=== PATIENT | female | born 1975 | race Caucasian/White ===

== ENCOUNTER 2016-08-07 14:20 | Emergency (ER) | payer MEDICAID ==
[~2016-08-07] VITALS: Ht 144.8 cm; Wt 63.5 kg
[2016-08-07 14:26] VITALS: BP 126/86
[2016-08-07] MEDS ORDERED: diphenhydrAMINE 50 MG/ML VIAL IM ONE (14:30)
[2016-08-07] MEDS ORDERED: MORPHINE SULFATE 4 MG/ML SYR IM ONE (14:30)
--- NOTE | 2016-08-07 14:30 | NUR ---
Patient ambulated to bed 07.
--- NOTE | 2016-08-07 14:31 | NUR ---
40/F BIB C/O ABSCESS UNDER LEFT ARM X3 DAYS. PT DENIES N/V/D; AAOX4 WITH EVEN AND STEADY GAIT; LUNGS CLEAR BL; HR EVEN AND REGULAR; PT DENIES ANY FEVER, CP, SOB, OR COUGH AT THIS TIME; PATIENT STATES PAIN OF 10/10 AT THIS TIME; VSS; PATIENT POSITIONED FOR COMFORT; HOB ELEVATED; BEDRAILS UP X2; BED DOWN. ER MD MADE AWARE OF PT STATUS.
[2016-08-07] MEDS ORDERED: LIDOCAINE/EPI 1% 1:100000 20 ML VIAL INJ ONE ×2 (14:34→15:05)
[2016-08-07] MEDS ORDERED: MORPHINE SULFATE 4 MG/ML SYR ONE (14:35)
--- NOTE | 2016-08-07 14:35 | NUR ---
DR WARNER EVALUATING PT AT BEDSIDE
[2016-08-07] MEDS ORDERED: diphenhydrAMINE 50 MG/ML VIAL ONE (14:37)
[2016-08-07 15:20] VITALS: BP 126/69
--- NOTE | 2016-08-07 15:20 | NUR ---
Patient discharged with v/s stable. Written and verbal after care instructions given and explained. Patient alert, oriented and verbalized understanding of instructions. Ambulatory with steady gait. All questions addressed prior to discharge. ID band removed. Patient advised to follow up with PMD. Rx of KEFLEX& NORCO given. Patient educated on indication of medication including possible reaction and side effects. Opportunity to ask questions provided and answered.
== END 2016-08-07 15:20 | disposition home or self-care (01) ==
LOC: MED 14:20
DX: L02.412 Cutaneous abscess of left axilla (principal)
CPT/HCPCS: 10060; 87070; 96372; 99284; J1200; J2001; J2270

== ENCOUNTER 2016-08-09 08:38 | Emergency (ER) | payer MEDICAID ==
[~2016-08-09] VITALS: Ht 144.8 cm; Wt 63.5 kg
[2016-08-09] MEDS ORDERED: NACL 0.9% 1,000 ML IV SCH (08:46)
[2016-08-09 08:49] VITALS: BP 118/70
[2016-08-09] MEDS ORDERED: ONDANSETRON 4 MG/2 ML VIAL IVP ONE (08:50)
--- NOTE | 2016-08-09 09:02 | NUR ---
Dr. Walker evaluating patient at bedside.
--- NOTE | 2016-08-09 09:02 | NUR ---
40/F BIB FOR RECHECK S/P I&D TO RIGHT AXILLA ABSCESS W/PACKING. PT DENIES N/V/D. AAOX4 WITH EVEN AND STEADY GAIT; LUNGS CLEAR BL; HR EVEN AND REGULAR; PT DENIES ANY FEVER, CP, SOB, OR COUGH AT THIS TIME; PATIENT STATES PAIN OF 2/10 AT THIS TIME; VSS; PATIENT POSITIONED FOR COMFORT; HOB ELEVATED; BEDRAILS UP X2; BED DOWN. ER MD MADE AWARE OF PT STATUS.
--- NOTE | 2016-08-09 09:02 | NUR ---
Patient ambulated to bed 7 with family. RN evaluating patient at bedside.
[2016-08-09 09:20] VITALS: BP 118/70
--- NOTE | 2016-08-09 09:20 | NUR ---
Patient discharged with v/s stable. Written and verbal after care instructions given and explained. Patient verbalized understanding. Ambulatory with steady gait. All questions addressed prior to discharge. Advised to follow up with PMD.
== END 2016-08-09 09:20 | disposition home or self-care (01) ==
LOC: MED 08:38
DX: Z48.01 Encounter for change or removal of surgical wound dressing (principal)
CPT/HCPCS: 99283

== ENCOUNTER 2016-08-11 09:05 | Emergency (ER) | payer MEDICAID ==
[~2016-08-11] VITALS: Ht 144.8 cm; Wt 63.5 kg
[2016-08-11 09:16] VITALS: BP 154/102
--- NOTE | 2016-08-11 09:21 | NUR ---
Patient ambulated to bed 3 with family. RN evaluating patient at bedside.
--- NOTE | 2016-08-11 09:39 | NUR ---
Dr. Mahoney evaluating patient at bedside.
--- NOTE | 2016-08-11 09:47 | NUR ---
PT CAME TO ER FOR RECHECK FOR ABSCESS UNDER LEFT ARM X4 DAYS;WOUND IS IN GOOD WOUND HEALING PROCESS;DENIES ANY PAIN AT THE SITE;DENIES CP/SOB/N/V/F;AAOX4;NO ACUTE DISTRESS NOTED;STEADY GAIT;NEEDS ATTNEDED;SAFETY MEASURES DONE;POSITIONED FOR COMFORT;
[2016-08-11 09:52] VITALS: BP 154/102
== END 2016-08-11 09:52 | disposition home or self-care (01) ==
LOC: MED 09:05
DX: Z48.01 Encounter for change or removal of surgical wound dressing (principal); R03.0 Elevated blood-pressure reading, without diagnosis of hypertension

== ENCOUNTER 2017-02-27 21:29 | Emergency (ER) | payer MEDICAID ==
[~2017-02-27] VITALS: Ht 149.9 cm; Wt 61.5 kg
[2017-02-27 22:04] VITALS: BP 114/60
--- NOTE | 2017-02-28 01:14 | NUR ---
PT TAKEN TO BED 8
--- NOTE | 2017-02-28 01:35 | NUR ---
41 Y/O F W/C/O ABCESS TO L ARMPIT/ CHILLS X 3 DAYS. NO MED HX. PT DENIES N/V/D; AAOX4 WITH EVEN AND STEADY GAIT; LUNGS CLEAR BL; HR EVEN AND REGULAR; PT DENIES ANY FEVER, CP, SOB, OR COUGH AT THIS TIME; PATIENT STATES PAIN OF 10/10 AT THIS TIME; VSS; PATIENT POSITIONED FOR COMFORT; HOB ELEVATED; BEDRAILS UP X2; BED DOWN. ER MD MADE AWARE OF PT STATUS.
--- NOTE | 2017-02-28 02:48 | NUR ---
Dr. Segundo evaluating patient at bedside.
[2017-02-28] MEDS ORDERED: LIDOCAINE 1% ***ER ONLY *** 10 MG/ML VIAL INJ ONE (02:50)
[2017-02-28] MEDS ORDERED: ONDANSETRON 4 MG/2 ML VIAL IVP ONE ×2 (02:50→04:25)
[2017-02-28] MEDS ORDERED: HYDROmorphone PFS 2 MG/ML SYR IVP ONE ×2 (02:50→05:05)
[2017-02-28] MEDS ORDERED: ONDANSETRON 4 MG/2 ML VIAL ONE ×2 (03:17→04:22)
--- NOTE | 2017-02-28 04:18 | NUR ---
PT C/O N/V. IVP MEDS GIVEN-NADR AT THIS TIME. PT FAMILY AT BEDSIDE. PT STS PAIN NOW 06/13.
--- NOTE | 2017-02-28 05:10 | NUR ---
I&D Procedure done by Dr Bertha PANDEY, SMALL amt of bleeding noted. Wound packed with . DSD applied. Pt TOLERATED THE procedure. Wound care discussed w/ patient.
[2017-02-28] MEDS ORDERED: LIDOCAINE 1% ***ER ONLY *** 50 ML ONE (05:20)
[2017-02-28 05:52] VITALS: BP 118/73
--- NOTE | 2017-02-28 05:52 | NUR ---
Patient discharged with v/s stable. Written and verbal after care instructions given and explained. Patient alert, oriented and verbalized understanding of instructions. Ambulatory with steady gait. All questions addressed prior to discharge. ID band removed. Patient advised to follow up with PMD. Rx of AUGMENTIN, NORCO given. Patient educated on indication of medication including possible reaction and side effects. Opportunity to ask questions provided and answered.
== END 2017-02-28 05:52 | disposition home or self-care (01) ==
LOC: MED 21:29
DX: L02.412 Cutaneous abscess of left axilla (principal)
CPT/HCPCS: 10060; 96374; 96375; 96376; 99284; J1170; J2001; J2405; 99285

== ENCOUNTER 2017-03-02 07:20 | Emergency (ER) | payer MEDICAID ==
[~2017-03-02] VITALS: Ht 144.8 cm; Wt 62.3 kg
[2017-03-02 07:28] VITALS: BP 117/77
--- NOTE | 2017-03-02 07:30 | NUR ---
PT AMBULATED TO BED 6.
--- NOTE | 2017-03-02 07:32 | NUR ---
41F BIB FAMILY C/O RECHECK TO LEFT CHEST ABCESS DRAINAGE ON 02/28/17; OPEN WOUND, MILD ERYTHEMA NOTED TO SITE AT THIS TIME; NO ACTIVE BLEEDING OR DRAINAGE NOTED TO SITE AT THIS TIME; PT STATES NO PAIN TO SITE AT THIS TIME; PT AA&OX4, PERRLA, BL LUNG SOUNDS CLEAR, RR EVEN/UNLABORED, SKIN IS WARM/DRY, PT STATES NO N/V/D AT THIS TIME; STEADY GAIT; PT RESTING IN BED WITH HOB ELEVATED AND IN LOWEST POSITION; POSITIONED FOR COMFORT; ER MD MADE AWARE OF STATUS. WILL CONTINUE TO MONITOR.
--- NOTE | 2017-03-02 07:48 | NUR ---
ER MD MACK EVALUATING PT AT BEDSIDE.
[2017-03-02 08:11] VITALS: BP 109/61
== END 2017-03-02 08:11 | disposition home or self-care (01) ==
LOC: MED 07:20
DX: Z48.01 Encounter for change or removal of surgical wound dressing (principal); F17.200 Nicotine dependence, unspecified, uncomplicated; Z71.6 Tobacco abuse counseling
CPT/HCPCS: 99282

== ENCOUNTER 2017-07-27 06:07 | Emergency (ER) | payer MEDICAID ==
[~2017-07-27] VITALS: Ht 144.8 cm; Wt 66.2 kg
[2017-07-27 06:10] VITALS: BP 123/71
--- NOTE | 2017-07-27 06:16 | NUR ---
PATIENT PRESENTS TO ED FOR WOUND CHECK POST I&D TO LEFT AXILARY ABCESS. PT STATES SHE DID NOT CLEAN OR CHANGE THE GUZUE THAT WAS PUT ON WHEN I&d WAS COMPLETED X2 DAYS AGO. GUAZE WAS SATURATED WITH GREEN DISCHARGE. SKIN IS PINK/WARM/DRY; PATIENT STAES NO N/V/D; AAOX4 WITH EVEN AND STEADY GAIT; LUNGS CLEAR BL; HR EVEN AND REGULAR; PT DENIES ANY FEVER, CP, SOB, OR COUGH AT THIS TIME; PATIENT STATES PAIN OF 2/10 AT THIS TIME; VSS; PATIENT POSITIONED FOR COMFORT; HOB ELEVATED; BEDRAILS UP X2; BED DOWN. ER MD MADE AWARE OF PT STATUS.
--- NOTE | 2017-07-27 06:20 | NUR ---
DR VALDIVIA AT BEDSIDE. CONDUCTED WOUND CARE, GUAZE REMOVAL, AND EVALUATION. PT TOLERATED PROCEDURE WELL.
[2017-07-27] MEDS ORDERED: SULFAMETH/TRIMETH DS 800/160MG 1 TAB PO ONE (06:25)
[2017-07-27] MEDS ORDERED: IBUPROFEN 800 MG TAB PO ONE (06:25)
--- NOTE | 2017-07-27 06:28 | NUR ---
EMT AT BEDSIDE. CLEANSED WITH NS, PAT DRY, COVERED WITH NONADHESIVE DRESSING.
[2017-07-27 06:35] VITALS: BP 123/71
--- NOTE | 2017-07-27 06:35 | NUR ---
Patient discharged with v/s stable. Afebrile. Post care instruction provided. Written and verbal after care instructions given and explained. Patient alert, oriented and verbalized understanding of instructions. Ambulatory with steady gait. All questions addressed prior to discharge. ID band removed. Patient advised to follow up with PMD. Rx of Motrin and Bactrim given. Patient educated on indication of medication including possible reaction and side effects. Opportunity to ask questions provided and answered.
== END 2017-07-27 06:35 | disposition home or self-care (01) ==
LOC: MED 06:07
DX: Z48.01 Encounter for change or removal of surgical wound dressing (principal); L02.412 Cutaneous abscess of left axilla; I10 Essential (primary) hypertension
CPT/HCPCS: 99283

== ENCOUNTER 2017-11-25 08:03 | Emergency (ER) | payer MEDICAID ==
[~2017-11-25] VITALS: Ht 144.8 cm; Wt 63.5 kg
[2017-11-25 08:10] VITALS: BP 115/62
--- NOTE | 2017-11-25 08:13 | NUR ---
PT AMBULATES TO BED 4
--- NOTE | 2017-11-25 08:20 | NUR ---
PTC/O ABSCESS TO LEFT ARMPIT X 2 MONTHS, WITH PURULENT DRAINAGE TODAY. DENIES N/V/D; SKIN IS PINK/WARM/DRY; AAOX4 WITH EVEN AND STEADY GAIT; LUNGS CLEAR BL; HR EVEN AND REGULAR; PT DENIES ANY FEVER, CP, SOB, OR COUGH AT THIS TIME; PATIENT STATES PAIN OF 5/10 AT THIS TIME; VSS; PATIENT POSITIONED FOR COMFORT; HOB ELEVATED; BEDRAILS UP X2; BED DOWN. ER MD MADE AWARE OF PT STATUS.
--- NOTE | 2017-11-25 08:28 | NUR ---
DR MOTLEY EVALUATING AT BEDSIDE
[2017-11-25 08:50] VITALS: BP 115/62
--- NOTE | 2017-11-25 08:50 | NUR ---
Patient discharged with v/s stable. Written and verbal after care instructions given and explained. Patient alert, oriented and verbalized understanding of instructions. Ambulatory with steady gait. All questions addressed prior to discharge. ID band removed. Patient advised to follow up with PMD. Rx of KEFLEX, BACTRIM AND MOTRIN given. Patient educated on indication of medication including possible reaction and side effects. Opportunity to ask questions provided and answered.
== END 2017-11-25 08:50 | disposition home or self-care (01) ==
LOC: MED 08:03
DX: L02.412 Cutaneous abscess of left axilla (principal); F17.200 Nicotine dependence, unspecified, uncomplicated
CPT/HCPCS: 99283